=== PATIENT | male | born 1935 | race Caucasian/White ===

== ENCOUNTER 2021-10-02 20:39 | Emergency (ER) | payer MEDICARE, SELFPAY ==
--- NOTE | ~2021-10-02 | XR_ITS ---
EXAMINATION: XR HIP, RIGHT CLINICAL INFORMATION: Right hip pain status post fall. COMPARISON: None TECHNIQUE: Two views of the right hip. FINDINGS: The patient is status post right hip were with [address] showing good anatomic alignment with no evidence for hardware malfunction. There is no acute fracture. The right hip joint and right hemipelvis are intact. Moderate to severe degenerative changes are seen in the visualized inferior lumbar spine, greater on the right side with partial visualization of lumbar dextro scoliosis. The soft tissues are unremarkable. XR/XR hip RT w PEL1V IMPRESSION: No acute fracture or hardware abnormality.
--- NOTE | ~2021-10-02 | CT_ITS ---
EXAMINATION: CT HEAD WITHOUT CONTRAST CT CERVICAL SPINE WITHOUT CONTRAST CLINICAL INFORMATION: Fall. COMPARISON: None available. TECHNIQUE: Contiguous axial imaging was performed from the skull base to vertex without intravenous administration of contrast. Contiguous axial imaging was performed from the upper chest through the skull base without intravenous administration of contrast. Coronal and sagittal reformats were obtained at the acquisition workstation. This CT examination was performed using dose optimization techniques as appropriate, variously including the following: *Automated exposure control. *Adjustment of mA and/or kV according to patient size (this includes techniques or standardized protocols for targeted exams where dose is matched to indication/reason for exam; i.e. extremities or head). *Use of iterative reconstruction technique. DLP: 1101 mGy-cm FINDINGS: Head: There is no evidence of acute intracranial hemorrhage or edematous territorial infarction. Scattered hypoattenuation in the periventricular and deep white matter are consistent with moderate microangiopathy. Michelle-white matter differentiation is preserved. The ventricles are normal in size and configuration. No evidence for obstructive hydrocephalus. No abnormal mass effect or midline shift. No extra-axial fluid collections. No acute soft tissue or osseous abnormalities. Mild mucosal thickening of the paranasal sinuses. The mastoid air cells and middle ear cavities are clear. Periapical lucency surrounding the maxillary left 2nd molar. Complete opacification of the left external auditory canal without demonstrated osseous erosions. Left-sided lens extraction. Calcific atherosclerotic disease of the intracranial internal carotid and vertebral arteries without hyperdense vessel sign. Cervical Spine: Rotational subluxation of C1 on C2 appears positional in nature. Otherwise, the atlantooccipital and atlantoaxial articulations remain well aligned. Straightening of the normal cervical lordosis. Mild degenerative anterolisthesis of C3 on C4 and C4 on C5. Otherwise, there is anatomic alignment of the vertebral bodies and posterior elements. No evidence of acute fracture or subluxation. Degenerative loss of C3-T1 vertebral body heights. Advanced degenerative disc disease at C5-C6 and T1-T2. Mild to moderate degenerative disc disease at all additional cervical levels. Facet and uncovertebral joint arthropathy leads to osseous encroachment on the neural foramina from C3-C6 and at T1-T2. There is no prevertebral soft tissue swelling. The thyroid gland and remaining cervical soft tissues are normal in appearance. The lung apices demonstrate no abnormalities. CT/CT cervical spine wo con IMPRESSION: 1. No evidence of acute intracranial hemorrhage or edematous territorial infarction. Moderate underlying microangiopathy and generalized cerebral volume loss. 2. No evidence of acute fracture or traumatic subluxation of the cervical spine. Moderate to advanced multilevel degenerative spinal arthropathy of the cervical spine.
[2021-10-02 20:52] VITALS: BP 160/58; BP 178/81; PULSE 52; PULSE 56; RESP 18; TEMP 36.7; O2SAT 89; O2SAT 98; BMI 25.0
--- NOTE | 2021-10-02 21:26 | ED_ITS ---
HPI - Fall General Chief Complaint: Fall Stated Complaint: fall Time Seen by Provider: 10/02/21 21:03 Source: patient and family Mode of arrival: EMS Limitations: no limitations History of Present Illness HPI Narrative: Patient lives in independent living place very frail walks with walker was in his room left the walker aside and tied to turn lost balance fell down landed on his right hip tried to stand up and fell forward hitting his face to the ground came with multiple skin tears on the right and elbow and left elbow and superficial a laceration right eyebrow no loss of consciousness. Patient also complaining of pain in the right hip has a history of ORIF in the right hip Related Data Allergies Allergy/AdvReac Type Severity Reaction Status Date / Time No Known Allergies Allergy Verified 10/02/21 21:32 Review of Systems Review of Systems: Yes all other systems are reviewed and are negative ON LICENSE OF [facility] Past Medical History Medical History Fracture of right hip requiring operative repair Hypercholesterolemia Hypertension Neuropathy Surgical History History of heart artery stent Social History Social History Alcohol intake: never Patient Tobacco Use Status: Former Tobacco user Smoked in Last 30 Days: No Use of substances other than those prescribed or required for medical reasons: No Advance Directives: Yes Advance Directives Information Provided: No Advance Directives on File: No Physical Exam Vital Signs: Vital Signs: Last Vital Signs Temp 98.1 F 10/02/21 22:13 Pulse 46 L 10/02/21 22:13 Resp 17 10/02/21 22:13 BP 132/55 L 10/02/21 22:13 Pulse Ox 98 10/02/21 22:13 BMI result Body Mass Index 25.0 Appearance: Alert. Oriented X3. No acute distress. Eyes: PERRLA, superficial laceration right eyebrow ENT: Pharynx normal. Oral Mucosa moist hard of hearing Neck: Normal inspection. Neck supple. In cervical collar CVS: Normal heart rate and rhythm. Pulses normal. Respiratory: No respiratory distress. Equal air entry bilateral, no wheezing/rales/rhonchi Abdomen: Soft and nontender. Bowel sounds are present, no mass palpable, no CVA tenderness Skin: Skin warm and dry. Multiple skin tear bilateral upper extremities right hand right forearm left forearm superficial laceration right eyebrow and right index finger Extremities: No lower extremity edema. No calf tenderness tenderness at the right hip area no deformity noticed neurovascular intact Neuro: Oriented X 3. No motor deficit. No sensory deficit.No cerebellar signs , cranial nerves II-XII intact Procedures Laceration Laceration 1: Site: hand (Right index) Side (If applicable): right Size (cm): 3 Description: flap Skin layer closed with: other (Dermabond) Discharge Plan Discharge Clinical Impression: Fall, Avulsion of skin Patient Disposition: Home, Self-Care Instructions: Fall Prevention for Older Adults (ED), Skin Avulsion (ED) Additional Instructions: Local care as advised Care of skin avulsion call visiting nurse to help in dressing Cautions as advised to avoid fall
[2021-10-02 22:13] VITALS: BP 132/55; PULSE 46; RESP 17; TEMP 36.7; O2SAT 98
--- NOTE | 2021-10-02 22:40 | ECG_ITS ---
Test Reason : fall/andrea Blood Pressure : / mmHG Vent. Rate : 044 BPM Atrial Rate : 044 BPM P-R Int : 186 ms QRS Dur : 102 ms QT Int : 454 ms P-R-T Axes : 049 020 043 degrees QTc Int : 388 ms Marked sinus bradycardia Abnormal ECG No previous ECGs available Referred By: Kael Wing Electronically Signed By:HAN RICE
--- NOTE | 2021-10-02 22:48 | PC.NURSE ---
Patients HR goes into low 40s made aware, EKG ordered. Patient reports that he has been seen by Doctors in past.
--- NOTE | 2021-10-03 00:23 | PC.NURSE ---
skin care given r/t pt skin tear. skin tear to left forearm, elbow, rt forearm, elbow, and rt 2nd digit. rt 2nd digit glued by dr durant, other skin tear sites, cleansed with NS, bacitracin or xeroform bacitracin dressing applied, covered with nonadherant dressing, and wrapped with watson.
== END 2021-10-03 00:26 | disposition home or self-care (01) ==
PROVIDERS: Emergency Provider Internal Medicine
DX: S61.210A Laceration without foreign body of right index finger without damage to nail, initial encounter (principal); S01.111A Laceration without foreign body of right eyelid and periocular area, initial encounter; S51.812A Laceration without foreign body of left forearm, initial encounter; S51.811A Laceration without foreign body of right forearm, initial encounter; M25.551 Pain in right hip; R94.31 Abnormal electrocardiogram [ECG] [EKG]; I10 Essential (primary) hypertension; W18.30XA Fall on same level, unspecified, initial encounter; Y93.9 Activity, unspecified; Y92.099 Unspecified place in other non-institutional residence as the place of occurrence of the external cause; Y99.9 Unspecified external cause status
CPT/HCPCS: 12002; 70450; 72125; 73502; 93005; 99284

== ENCOUNTER 2021-12-12 17:55 | Emergency (ER) | payer MEDICARE, SELFPAY ==
--- NOTE | ~2021-12-12 | XR_ITS ---
EXAMINATION: CR RIGHT SHOULDER. CR PELVIS. CR LUMBAR SPINE. CLINICAL INFORMATION: Fall. Pain. COMPARISON: None TECHNIQUE: 3 views of the right shoulder. 3 views of the lumbar spine. Frontal view of the pelvis. FINDINGS: Right shoulder: Diffuse osteopenia. No acute fracture or dislocation. Glenohumeral joint and acromioclavicular joints are intact. There is prominent bursal surface spurring from the distal clavicle at the AC joint, predisposing the patient to impingement. Coracoclavicular distance is normal. Included right ribs appear intact. Pelvis: Diffuse osteopenia. No definite acute fracture or dislocation. 3 femoral screws is seen in the right femoral neck with no evidence of hardware failure or recurrent bone fracture. There is severe superior joint space narrowing, sclerosis, moderate femoral head spurring and mild cystic changes and spurring in the left acetabulum. Sacroiliac joints and pubic symphysis are intact. There is stool overlapping the sacrum, obscuring assessment. On the lateral view, the sacrum appears intact. Atherosclerotic calcification of the aorta iliac and femoral vessels seen. Lumbar spine: Prominent rotatory convex right thoracolumbar scoliosis is seen. This significantly limits the assessment on the lateral view and the sensitivity of the exam is limited. There is diffuse osteopenia and mild loss in height of the mid and lower lumbar vertebral bodies (L3-L5), likely long-standing given associated prominent vertebral endplate spurring and degenerative disc disease. Close clinical correlation is requested. There is diffuse disc space narrowing and vertebral endplate sclerosis and spurring throughout the thoracolumbar spine. There is severe facet arthropathy throughout the lumbar spine. There may be resultant spinal canal stenosis in the lower lumbar/lumbosacral spine region. Dense atherosclerotic calcification of the abdominal aorta and bifurcation noted. XR/XR shoulder RT min 2V IMPRESSION: 1. No evidence of acute right shoulder fracture. Prominent bursal surface spurring at the acromioclavicular joint is noted, predisposing the patient to impingement. 2. No evidence of acute pelvic fracture. Right femoral neck hardware is seen, appearing intact. 3. Limited assessment of the lumbar spine due to severe thoracolumbar dextroscoliosis and multilevel degenerative changes. Loss in height of the L3-L5 vertebral bodies is seen, likely long-standing. Close clinical correlation is requested.
--- NOTE | ~2021-12-12 | CT_ITS ---
EXAMINATION: CT HEAD WITHOUT CONTRAST CT CERVICAL SPINE WITHOUT CONTRAST CLINICAL INFORMATION: Fall. COMPARISON: CT head and cervical spine 10/02/2021 TECHNIQUE: Imaging was performed from the skull base to vertex without intravenous administration of contrast. In addition, helical noncontrast CT imaging was acquired through the cervical spine and source images were reviewed along with axial reconstructions and sagittal and coronal MPRs. [This CT examination was performed using dose optimization techniques as appropriate, variously including the following: *Automated exposure control *Adjustment of mA and/or kV according to patient size (this includes techniques or standardized protocols for targeted exams where dose is matched to indication/reason for exam; i.e. extremities or head) *Use of iterative reconstruction technique] DLP: 1183 mGy-cm FINDINGS: HEAD: No intracranial mass, hemorrhage, or midline shift is visualized. There is generalized global volume loss. There is moderate prominence of the ventricles and the sulci . There is mild hypodensity of the periventricular white matter due to chronic small vessel ischemic disease. There are vascular calcifications of the internal carotid arteries bilaterally. No extra-axial collections are identified. The paranasal sinuses and mastoid air cells are well aerated. CERVICAL SPINE: There is no evidence of acute cervical spine fracture. Vertebral bodies remain normal in height. Cervical vertebrae have normal alignment. There is multilevel degenerative spondylosis of the cervical spine with disc height narrowing and endplate spurs and facet joint arthrosis No pre- or paravertebral soft tissue abnormality is identified. Limited assessment of the lung apices is unremarkable. CT/CT cervical spine wo con IMPRESSION: 1. No acute intracranial pathology. 2. No CT evidence of acute cervical spine fracture or traumatic subluxation
[2021-12-12 18:09] VITALS: BP 148/74; PULSE 52; O2SAT 97
[2021-12-12 18:10] VITALS: BP 171/74; PULSE 51; RESP 16; TEMP 35.8; O2SAT 98; BMI 26.9
--- NOTE | 2021-12-12 18:23 | ED_ITS ---
HPI - Fall General Chief Complaint: Fall Stated Complaint: fall Time Seen by Provider: 12/12/21 18:23 Source: patient and family Mode of arrival: EMS Limitations: no limitations History of Present Illness HPI Narrative: Apparently patient was in assisted living room trying to put his shirt on lost balance stumbled fell backwards hitting his buttocks 1st then lower back and then the head to the ground complaining of pain in the lower back at this no loss of consciousness no other injury Related Data Allergies Allergy/AdvReac Type Severity Reaction Status Date / Time No Known Allergies Allergy Verified 10/02/21 21:32 Review of Systems Review of Systems: Yes all other systems are reviewed and are negative [facility] Past Medical History Medical History (Updated 12/13/21 @ 00:01 by Henri Mckenzie) Bradycardia Fracture of right hip requiring operative repair Hypercholesterolemia Hypertension Neuropathy Peripheral neuropathy Surgical History History of heart artery stent Social History Social History Alcohol intake: never Patient Tobacco Use Status: Former Tobacco user Use of substances other than those prescribed or required for medical reasons: No Advance Directives: Yes Advance Directives Information Provided: Yes Advance Directives on File: No Physical Exam Vital Signs: Vital Signs: Last Vital Signs Temp 98.2 F 12/12/21 22:20 Pulse 52 12/12/21 22:20 Resp 17 12/12/21 22:20 BP 176/83 H 12/12/21 22:20 Pulse Ox 97 12/12/21 22:20 O2 Del Method 12/12/21 22:20 BMI result Body Mass Index 26.9 Appearance: Alert. Oriented X3. No acute distress. Eyes: PERRLA, No Nystagmus ENT: Pharynx normal. Oral Mucosa moist Neck: Normal inspection. Neck supple. In cervical collar CVS: Normal heart rate and rhythm. Pulses normal. Respiratory: No respiratory distress. Equal air entry bilateral, no wheezing/rales/rhonchi Abdomen: Soft and nontender. Bowel sounds are present, no mass palpable, no CVA tenderness Back: Diffuse tenderness L2-L3 area no deformity no bruising Skin: Skin warm and dry. Normal skin color. Normal skin turgor. Extremities: No lower extremity edema. No calf tenderness Neuro: Oriented X 3. No motor deficit. No sensory deficit.No cerebellar signs , cranial nerves II-XII intact MDM - Fall MDM Narrative Medical decision making narrative: Patient is status post mechanical fall without loss of consciousness head CT C- spine CT negative lumbar spine x-ray showed age-indeterminate compression fracture perfamily likely old pelvis was negative patient ambulated in the ER discharge patient home Discharge Plan Discharge Clinical Impression: Fall, Compression fracture Patient Disposition: Home, Self-Care Instructions: Vertebral Compression Fracture (ED), Fall Prevention for Older Adults (ED) Additional Instructions: Care and cautions as advised Follow-up with your PCP about the back pain and? Old Compression fractures Tylenol for the pain Interventions: ED Discharge Assessment Last Done: 12/12/21 23:28 Discharge Date/Time: 12/12/21 23:28
--- NOTE | 2021-12-12 19:58 | PC.NURSE ---
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
[2021-12-12 19:59] VITALS: BP 168/71; PULSE 45; RESP 18; O2SAT 98
[2021-12-12 22:20] VITALS: BP 176/83; PULSE 52; RESP 17; TEMP 36.8; O2SAT 97
--- NOTE | 2021-12-12 22:53 | PC.NURSE ---
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
[2021-12-12] MEDS: Acetaminophen 325 MG TABLET 650 MG PO (23:12)
--- NOTE | 2021-12-12 23:28 | PC.NURSE ---
pt ambulated using walker slow yet steady gait. dc in w/c with son
== END 2021-12-12 23:28 | disposition home or self-care (01) ==
PROVIDERS: Emergency Provider Internal Medicine
DX: S32.009A Unspecified fracture of unspecified lumbar vertebra, initial encounter for closed fracture (principal); M54.2 Cervicalgia; M54.50 Low back pain, unspecified; R51.9 Headache, unspecified; R10.2 Pelvic and perineal pain; M25.511 Pain in right shoulder; W01.0XXA Fall on same level from slipping, tripping and stumbling without subsequent striking against object, initial encounter; Y93.9 Activity, unspecified; Y92.9 Unspecified place or not applicable; Y99.9 Unspecified external cause status; Z87.891 Personal history of nicotine dependence; Z79.899 Other long term (current) drug therapy
CPT/HCPCS: 70450; 72100; 72125; 72170; 73030; 99284

== ENCOUNTER 2022-12-25 09:47 | Emergency (ER) | payer MEDICARE, SELFPAY ==
[2022-12-25] VITALS (7 sets, daily range): BP systolic 111–155; BP diastolic 62–81; PULSE 44–66; RESP 13–19; TEMP 36.3–36.6; O2SAT 95–97; BMI 29.9
--- NOTE | 2022-12-25 09:53 | ECG_ITS ---
Test Reason : CP Blood Pressure : / mmHG Vent. Rate : 061 BPM Atrial Rate : 061 BPM P-R Int : 164 ms QRS Dur : 092 ms QT Int : 414 ms P-R-T Axes : 000 016 029 degrees QTc Int : 416 ms Ectopic atrial rhythm Otherwise Normal ECG When compared with ECG of 02-OCT-2021 22:37, No significant change was found Referred By: Generic ED Physician Electronically Signed By:Jose Lopez
--- NOTE | 2022-12-25 10:15 | PC.NURSE ---
pt alert and oriented, skin pwd, respirations even and unlabored ls clear, pt states that when he woke up to go use the bathroom he had some left sided chest pressure which is now resolved, denies dizziness, but also having some tingling in bilateral arms and hands, ns on the monitor and vs stable
[2022-12-25 10:17] LABS: MANUAL DIFF FLAG NO
[2022-12-25 10:24] LABS: Basophils Absolute Auto 0.1 X10*3/uL (0.0-0.2); Basophils Percent Auto 0.6 % (0-2); Eosinophils Absolute Auto 0.1 X10*3/uL (0.0-0.4); Eosinophils Percent Auto 1.4 % (0-4); Hematocrit 43.8 % (42.0-52.0); Hemoglobin 14.2 g/dl (14.0-18.0); Imm Gran Abs Auto 0.06 X10*3/uL (0.00-0.03); Imm Gran Pct Auto 0.7 % (0.0-0.4); Lymphocytes Absolute Auto 2.2 X10*3/uL (1.2-4.9); Lymphocytes Percent Auto 26.1 % (20-40); Mean Corpuscular HGB Conc 32.4 g/dl (31.0-36.0); Mean Corpuscular Hemoglobin 31.3 pg (27.0-33.0); Mean Corpuscular Volume 96.5 fL (80.0-98.0); Mean Platelet Volume 9.5 fL (9.4-12.4); Monocytes Absolute Auto 0.8 X10*3/uL (0.1-1.2); Neutrophils Absolute Auto 5.1 x10*3/uL (2.0-8.3); Neutrophils Percent Auto 61.2 % (45-73); Platelet Count 183 X10*3/uL (160-400); Red Blood Count 4.54 X10*6/uL (4.60-5.80); Red Cell Distribution Width 13.2 % (11.0-16.0); White Blood Count 8.3 X10*3/uL (4.8-10.8)
--- NOTE | 2022-12-25 10:25 | ED.CHESTPAIN ---
HPI - Chest Pain General Chief Complaint: Chest Pain Stated Complaint: Tingling in hands, chest pressure Time Seen by Provider: 12/25/22 10:03 Source: patient and EMS Mode of arrival: EMS Limitations: no limitations History of Present Illness HPI narrative: 87 yo from MD presented c/o chest pain X 3 h pain gone now.pain was radiated to the arms.no diaphoresis no SOB MD complaint: chest pain Onset (ago): hour(s) (3) Timing of current episode: episodic Onset: other (walking to the bathroom) Pain location: substernal Pain radiation: other (arms) Severity: mild Quality: dull Relieving factors: nothing Exacerbating factors: nothing Risk Factors Coronary artery disease risk factors: none Related Data Home Medications Medication Instructions Recorded Confirmed acetaminophen 650 mg 650 mg PO BID 12/25/22 12/25/22 tablet,extended release (Tylenol 8 Hour) aspirin 81 mg tablet,delayed 81 mg PO DAILY 12/25/22 12/25/22 release bumetanide 0.5 mg tablet 0.5 mg PO DAILY 12/25/22 12/25/22 cholecalciferol (vitamin D3) 25 50 mcg PO DAILY@1700 12/25/22 12/25/22 mcg (1,000 unit) tablet chromium picolinate 200 mcg tablet 200 mcg PO DAILY 12/25/22 12/25/22 docusate sodium 50 mg capsule 50 mg PO BEDTIME 12/25/22 12/25/22 flaxseed oil 1,000 mg capsule 1,400 mg PO DAILY 12/25/22 12/25/22 lisinopril 20 mg tablet 20 mg PO DAILY 12/25/22 12/25/22 magnesium oxide 400 mg (241.3 mg 400 mg PO DAILY 12/25/22 12/25/22 magnesium) tablet sertraline 50 mg tablet 50 mg PO BEDTIME 12/25/22 12/25/22 simvastatin 20 mg tablet 20 mg PO BEDTIME 12/25/22 12/25/22 Allergies Allergy/AdvReac Type Severity Reaction Status Date / Time No Known Allergies Allergy Verified 12/25/22 09:59 [facility] Past Medical History Medical History Bradycardia Fracture of right hip requiring operative repair Hypercholesterolemia Hypertension Neuropathy Peripheral neuropathy Surgical History History of heart artery stent Social History Social History Alcohol intake: never Patient Tobacco Use Status: Former Tobacco user Smoked in Last 30 Days: No Use of substances other than those prescribed or required for medical reasons: No Advance Directives: Yes Advance Directives Information Provided: No Advance Directives on File: No Physical Exam Vital Signs: Vital Signs: Last Vital Signs Temp 97.4 F 12/25/22 15:32 Pulse 48 L 12/25/22 15:32 Resp 15 12/25/22 15:32 BP 144/73 H 12/25/22 15:32 Pulse Ox 96 12/25/22 15:32 O2 Del Method Nasal Cannula 12/25/22 15:32 O2 Flow Rate 2 12/25/22 15:32 BMI result Body Mass Index 29.9 Const: General: cooperative Nutritional Appearance: average body habitus Orientation/consciousness: patient oriented x3 Limitations: no limitations HEENT: Head: Yes normal to inspection Ears: hearing grossly normal bilaterally General nose exam: Normal external nose present Face and sinus: Yes normal facial exam Mouth: Normal oral and palatal mucosa present Throat: Yes posterior oropharynx normal Neck: Neck: Yes normal visual inspection and Yes full ROM Chest: Chest palpation & inspection: normal inspection of the chest Resp: Effort & Inspection: normal respiratory effort Auscultation: clear to auscultation bilaterally Cardio: Jugular venous distension: no JVD Rate: regular rate Rhythm: regular rhythm GI: Inspection: Yes normal to inspection Palpation (GI): Soft to palpation, not firm and nontender Percussion: Yes normal to percussion Skin: General skin exam: no rashes or lesions noted and elasticity normal Lesions: no lesions Rashes: no rashes Neuro: General: patient oriented x3 Course Reevaluation(s) Reevaluation #1: Spoke with son actually pt has hx of cardiac stent in the past Time: 10:38 Reevaluation #2: pt will be transferred to [facility] requested by Dr Lopez Time: 13:50 Medications Administered Generic Name Dose Route Start Last Admin Trade Name Freq PRN Reason Stop Dose Admin Heparin Sodium/Sodium Chloride 25,000 unit in 250 mls @ 0 mls/hr 12/25/22 11:15 12/25/22 12:23 Heparin Sodium,Porcine/1/2ns IVCONT 12 units/kg/hr .Q0M MYKE 10.08 mls/hr Administration Protocol Per Protocol Discontinued Medications Generic Name Dose Route Start Last Admin Trade Name Augustine PRN Reason Stop Dose Admin Clopidogrel Bisulfate 300 mg 12/25/22 13:08 12/25/22 15:29 Clopidogrel Bisulfate 300 Mg Tablet PO 12/25/22 13:09 300 mg ONCE ONE Administration Heparin Sodium (Porcine) 4,000 unit 12/25/22 11:13 12/25/22 12:22 Heparin Sodium,Porcine 5,000 Unit/Ml Vial IVPUSH 12/25/22 11:14 4,000 unit ONCE ONE Administration Medical Decision Making Medical Decision Making [facility] Narrative: Patient presents with chest pain elevated high sensitive troponin cardiology consult was consulted the decision was made to transfer the patient a [facility] for a possible Cath Differential Diagnosis Differential Diagnoses: The differential diagnosis associated with the presentation includes NH/pericarditis/aortic dissection Admission/Observation Consideration of admission/observation: Escalation of care including admission/observation considered Consult Healthcare Provider Management of the patient was discussed with: [employer] Operator Telephone Appointment Clerk Dr Lopez Lab Data [facility] Lab Attestation statement: I reviewed the patient's lab results. 12/25/22 10:11 12/25/22 10:11 Labs: Lab Results 12/25/22 12/25/22 12/25/22 Range/Units 10:11 10:11 10:11 WBC (4.8-10.8) X10*3/uL RBC (4.60-5.80) X10*6/uL Hgb (14.0-18.0) g/dl Hct (42.0-52.0) % MCV (80.0-98.0) fL MCH (27.0-33.0) pg MCHC (31.0-36.0) g/dl RDW (11.0-16.0) % Plt Count (160-400) X10*3/uL MPV (9.4-12.4) fL Immature Gran % (Auto) (0.0-0.4) % Neut % (Auto) (45-73) % Lymph % (Auto) (20-40) % [place] % (Auto) (2-11) % Eos % (Auto) (0-4) % Baso % (Auto) (0-2) % Lymph # (Auto) (1.2-4.9) X10*3/uL [place] # (Auto) (0.1-1.2) X10*3/uL Eos # (Auto) (0.0-0.4) X10*3/uL Baso # (Auto) (0.0-0.2) X10*3/uL Abs Immat Gran (auto) (0.00-0.03) X10*3/uL Absolute Neuts (auto) (2.0-8.3) x10*3/uL Absolute Nucleated RBC (0.0-0.012) X10*3/uL Nucleated RBC % (auto) (0.0-0.2) /100WBC ESR 7 (0-15) MM/HR PT 10.0 (10.0-13.1) SEC INR 0.9 (0.9-1.1) APTT 28.6 (26.0-36.4) SEC Sodium 142 (135-145) mmol/L Potassium 4.8 (3.3-5.1) mmol/L Chloride 110 H (96-108) mmol/L Carbon Dioxide 24 (22-29) mmol/L Anion Gap 13 (12-20) BUN 23 H (9-16) mg/dL Creatinine 1.08 (0.5-1.4) mg/dL Estim Creat Clear Calc 49.9 Estimated GFR > 60 Random Glucose 92 (60-115) mg/dL Calcium 10.2 (8.4-10.2) mg/dL Magnesium 2.3 (1.6-2.6) mg/dL Total Bilirubin 0.4 (0.0-1.0) mg/dL AST 37 (5-37) U/L ALT 21 (0-40) U/L Alkaline Phosphatase 56 (39-117) U/L Troponin I High Sens (<3.5-35.0) ng/L C-Reactive Protein < 0.10 (< or = 0.50) mg/dL Total Protein 6.5 (6.5-8.0) g/dL Albumin 3.7 (3.5-5.0) g/dL COVID-19 (JOHNATHAN) (Negative) COVID-19 Clin Com 12/25/22 12/25/22 12/25/22 Range/Units 10:11 10:34 13:14 WBC 8.3 (4.8-10.8) X10*3/uL RBC 4.54 L (4.60-5.80) X10*6/uL Hgb 14.2 (14.0-18.0) g/dl Hct 43.8 (42.0-52.0) % MCV 96.5 (80.0-98.0) fL MCH 31.3 (27.0-33.0) pg MCHC 32.4 (31.0-36.0) g/dl RDW 13.2 (11.0-16.0) % Plt Count 183 (160-400) X10*3/uL MPV 9.5 (9.4-12.4) fL Immature Gran % (Auto) 0.7 H (0.0-0.4) % Neut % (Auto) 61.2 (45-73) % Lymph % (Auto) 26.1 (20-40) % Elliott % (Auto) 10.0 (2-11) % Eos % (Auto) 1.4 (0-4) % Baso % (Auto) 0.6 (0-2) % Lymph # (Auto) 2.2 (1.2-4.9) X10*3/uL Elliott # (Auto) 0.8 (0.1-1.2) X10*3/uL Eos # (Auto) 0.1 (0.0-0.4) X10*3/uL Baso # (Auto) 0.1 (0.0-0.2) X10*3/uL Abs Immat Gran (auto) 0.06 H (0.00-0.03) X10*3/uL Absolute Neuts (auto) 5.1 (2.0-8.3) x10*3/uL Absolute Nucleated RBC 0.000 (0.0-0.012) X10*3/uL Nucleated RBC % (auto) 0.0 (0.0-0.2) /100WBC ESR (0-15) MM/HR PT (10.0-13.1) SEC INR (0.9-1.1) APTT (26.0-36.4) SEC Sodium (135-145) mmol/L Potassium (3.3-5.1) mmol/L Chloride (96-108) mmol/L Carbon Dioxide (22-29) mmol/L Anion Gap (12-20) BUN (9-16) mg/dL Creatinine (0.5-1.4) mg/dL Estim Creat Clear Calc Estimated GFR Random Glucose (60-115) mg/dL Calcium (8.4-10.2) mg/dL Magnesium (1.6-2.6) mg/dL Total Bilirubin (0.0-1.0) mg/dL AST (5-37) U/L ALT (0-40) U/L Alkaline Phosphatase (39-117) U/L Troponin I High Sens 1125.8 H* (<3.5-35.0) ng/L C-Reactive Protein (< or = 0.50) mg/dL Total Protein (6.5-8.0) g/dL Albumin (3.5-5.0) g/dL COVID-19 (JOHNATHAN) Negative (Negative) COVID-19 Clin Com See Note Independent Interpretation I performed an independent interpretation of an: EKG Interpretation: EKG #! Normal sinus rhythm rate [address]-T changes Radiology Impression Discussion of test interpretation with radiology: I have reviewed the radiologist's reading. Independent Historian Clinical information obtained from an independent historian. History obtained from or confirmed by: Other (Son ) External Record Review External record reviewed: Office record Chronic Conditions Patient?s care impacted by: Other (CAD) Critical Care Time Critical Care Time Critical Care Time: Yes Total Critical Care Time: 60 Attestation: speaking with parking cashier arranging transfer Discharge Plan Discharge Clinical Impression: Acute coronary syndrome Patient Disposition: Xfer [facility] Transfer Details: cath Prescriptions: No Action lisinopril 20 mg tablet 20 mg PO DAILY docusate sodium 50 mg Capsule 50 mg PO BEDTIME aspirin 81 mg Tablet,Delayed Release (Dr/Ec) 81 mg PO DAILY acetaminophen [Tylenol 8 Hour] 650 mg Tablet Extended Release 650 mg PO BID flaxseed oil 1,000 mg Capsule 1,400 mg PO DAILY Rx Instructions: administer with a meal magnesium oxide 400 mg (241.3 mg magnesium) Tablet 400 mg PO DAILY simvastatin 20 mg tablet 20 mg PO BEDTIME bumetanide 0.5 mg tablet 0.5 mg PO DAILY chromium picolinate 200 mcg Tablet 200 mcg PO DAILY sertraline 50 mg tablet 50 mg PO BEDTIME cholecalciferol (vitamin D3) 25 mcg (1,000 unit) tablet 50 mcg PO DAILY@1700
[2022-12-25 10:30] LABS: INTERNATIONAL NORM RATIO 0.9 (0.9-1.1)
[2022-12-25 10:33] LABS: Partial Thromboplastin Time 28.6 SEC (26.0-36.4)
[2022-12-25 10:46] LABS: Alanine Aminotransferase 21 U/L (0-40); Albumin Level 3.7 g/dL (3.5-5.0); Alkaline Phosphatase 56 U/L (39-117); Anion Gap 13 (12-20); Aspartate Amino Transferase 37 U/L (5-37); Bilirubin Total 0.4 mg/dL (0.0-1.0); Blood Urea Nitrogen 23 mg/dL (9-16); C Reactive Protein < 0.10 mg/dL (< or = 0.50); Calcium 10.2 mg/dL (8.4-10.2); Carbon Dioxide 24 mmol/L (22-29); Chloride 110 mmol/L (96-108); Creatinine Clr Calc Pharmacy 49.9; Estimated Glomerular Filt Rate > 60; Glucose Random 92 mg/dL (60-115); Magnesium 2.3 mg/dL (1.6-2.6); Potassium 4.8 mmol/L (3.3-5.1); Sodium 142 mmol/L (135-145); Total Protein 6.5 g/dL (6.5-8.0)
[2022-12-25 11:02] LABS: Troponin-I High Sensitivity 1125.8 ng/L (<3.5-35.0)
[2022-12-25 11:12] LABS: Erythrocyte Sedimentation Rate 7 MM/HR (0-15)
--- NOTE | 2022-12-25 12:01 | PC.NURSE ---
aox4. no chest pain. tingling to hands continues- baseline hand numbness r/tneuropathy. no other sx. hr 40s. denies dizziness. bp stable. starting heparin gtt. pt to be transferred at some point to [facility]. gonzales equally. coherent speech. 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 no resp distress. skin normal color/+CSM. piv c/d/i.
[2022-12-25] MEDS: Heparin Sodium,Porcine 5,000 UNIT/ML VIAL 4000 UNIT IVPUSH (12:22)
[2022-12-25] MEDS: Heparin Sodium,Porcine/1/2NS 25,000 UNIT/250 ML IV.SOLN 10.08 UNIT IVCONT (12:23)
--- NOTE | 2022-12-25 12:38 | PC.NURSE ---
md smith notified hr 40s, denies dizziness/sob/cp. aox4. calm, coop. bp stable.
--- NOTE | 2022-12-25 13:01 | PM.CNCAR ---
History of Present Illness History of Present Illness Date of Service: 12/25/22 Requesting physician: Ayad Arce Chief complaint: NSTEMI Narrative: 87-year-old gentleman who is presenting with CP and NSTEMI. Has known coronary artery disease and previously had RCA PCI as per the son being 2010. He had PCI done in [place]. Is presenting because he had sudden-onset left-sided chest tightness at rest which lasted for 1-1/2 hour. He did not have any dynamic EKG changes. He ruled in for NSTEMI. He is currently pain-free and has no symptoms. No bleeding issues in the past. He is saying he has mild memory problems. He has a footdrop and his mobility is somewhat limited. He has been started on heparin drip. [facility] Past Medical History Medical History Bradycardia Fracture of right hip requiring operative repair Hypercholesterolemia Hypertension Neuropathy Peripheral neuropathy Surgical History Surgical History History of heart artery stent Social History Social History Alcohol intake: never Patient Tobacco Use Status: Former Tobacco user Smoked in Last 30 Days: No Use of substances other than those prescribed or required for medical reasons: No Advance Directives: Yes Advance Directives Information Provided: No Advance Directives on File: No Meds Allergies Allergy/AdvReac Type Severity Reaction Status Date / Time No Known Allergies Allergy Verified 12/25/22 09:59 Active Medications: Current Medications Heparin Sodium (Porcine) (Heparin Sodium,Porcine 5,000 Unit/Ml Vial) 3,400 unit 40 unit/kg (3400 unit) IVPUSH PROTOCOL BOLUS PRN; Protocol PRN Reason: 40 unit/kg - Heparin Protocol Heparin Sodium (Porcine) (Heparin Sodium,Porcine 5,000 Unit/Ml Vial) 6,700 unit 80 unit/kg (6700 unit) IVPUSH PROTOCOL BOLUS PRN; Protocol PRN Reason: 80 unit/kg - Heparin Protocol Heparin Sodium/Sodium Chloride (Heparin Sodium,Porcine/1/2ns) 25,000 unit in 250 mls @ 0 mls/hr IVCONT .Q0M MYKE; Protocol Last Admin: 12/25/22 12:23 Dose: 12 units/kg/hr, 10.08 mls/hr Physical Exam Vital Signs: Vital Signs: Last Vital Signs Temp 97.8 F 12/25/22 12:03 Pulse 45 L 12/25/22 12:03 Resp 18 12/25/22 12:03 BP 133/74 12/25/22 12:03 Pulse Ox 95 12/25/22 12:03 O2 Del Method Room Air 12/25/22 12:03 BMI result Body Mass Index 29.9 GENERAL APPEARANCE: in no acute distress, pleasant. NECK: no carotid bruit, no jugular venous distention. SKIN: no suspicious lesions, warm and dry. HEART: no murmurs, regular rate and rhythm. Bradycardic. LUNGS: clear to auscultation bilaterally. ABDOMEN: soft, nontender. EXTREMITIES: no edema. PERIPHERAL PULSES: equal. NEUROLOGIC: No gross deficits, AAO X 3 Objective Labs and Meds 12/25/22 10:11 12/25/22 10:11 Lab results: Laboratory Results - last 24 hr 12/25/22 12/25/22 12/25/22 10:11 10:11 10:11 WBC RBC Hgb Hct MCV MCH MCHC RDW Plt Count MPV Immature Gran % (Auto) Neut % (Auto) Lymph % (Auto) [place] % (Auto) Eos % (Auto) Baso % (Auto) Lymph # (Auto) [place] # (Auto) Eos # (Auto) Baso # (Auto) Abs Immat Gran (auto) Absolute Neuts (auto) Absolute Nucleated RBC Nucleated RBC % (auto) ESR 7 PT 10.0 INR 0.9 APTT 28.6 Sodium 142 Potassium 4.8 Chloride 110 H Carbon Dioxide 24 Anion Gap 13 BUN 23 H Creatinine 1.08 Estim Creat Clear Calc 49.9 Estimated GFR > 60 Random Glucose 92 Calcium 10.2 Magnesium 2.3 Total Bilirubin 0.4 AST 37 ALT 21 Alkaline Phosphatase 56 Troponin I High Sens C-Reactive Protein < 0.10 Total Protein 6.5 Albumin 3.7 12/25/22 12/25/22 10:11 10:34 WBC 8.3 RBC 4.54 L Hgb 14.2 Hct 43.8 MCV 96.5 MCH 31.3 MCHC 32.4 RDW 13.2 Plt Count 183 MPV 9.5 Immature Gran % (Auto) 0.7 H Neut % (Auto) 61.2 Lymph % (Auto) 26.1 [place] % (Auto) 10.0 Eos % (Auto) 1.4 Baso % (Auto) 0.6 Lymph # (Auto) 2.2 [place] # (Auto) 0.8 Eos # (Auto) 0.1 Baso # (Auto) 0.1 Abs Immat Gran (auto) 0.06 H Absolute Neuts (auto) 5.1 Absolute Nucleated RBC 0.000 Nucleated RBC % (auto) 0.0 ESR PT INR APTT Sodium Potassium Chloride Carbon Dioxide Anion Gap BUN Creatinine Estim Creat Clear Calc Estimated GFR Random Glucose Calcium Magnesium Total Bilirubin AST ALT Alkaline Phosphatase Troponin I High Sens 1125.8 H* C-Reactive Protein Total Protein Albumin Assessment and Plan (1) Acute coronary syndrome: Status: Acute Plan [age] year gentleman presenting with NSTEMI. He has known history of coronary disease reportedly and had RCA PCI in 2010. He has ruled in and clinical story is quite concerning for acute coronary syndrome. He is on aspirin which should be continued. Adding Plavix 300 mg load and he should stay on 75 mg once a day. Continue heparin drip. He will be transferred to [facility] with potential plan of doing cardiac catheterization tomorrow morning. Keep NPO after midnight. Obviously if he started having chest discomfort again then we will expedite the procedure today. Thank you for allowing me to participate in the care of your patient. Please feel free to contact me if you have any questions. Time Spent With Patient Time: Total time managing care of this patient today ____ minutes. Procedures Date of Service Date of Service: 12/25/22
--- NOTE | 2022-12-25 13:14 | ECG_ITS ---
Test Reason : CP - REPEAT Blood Pressure : / mmHG Vent. Rate : 046 BPM Atrial Rate : 046 BPM P-R Int : 162 ms QRS Dur : 092 ms QT Int : 476 ms P-R-T Axes : -72 005 035 degrees QTc Int : 416 ms Unusual P axis, possible ectopic atrial bradycardia Abnormal ECG When compared with ECG of 25-DEC-2022 09:52, Ectopic atrial rhythm has replaced Sinus rhythm Referred By: Ayad Arce Electronically Signed By:Jose Lopez
[2022-12-25 13:39] LABS: COVID-19 Test Negative (Negative); IDNOW Serial# 08D9AD1C
--- NOTE | 2022-12-25 14:00 | CA_ITS ---
Transthoracic Echocardiogram Patient (Last, First, Middle): Stewart Will, Gender: Male Date of : 1935 Age: 87 Procedure Date: 12/25/2022 Procedure Type: Transthoracic Echocardiogram Location: ER Height: 167.64 cm Weight: 83.92 kg BSA: 1.93 m2 Heart Rate: 45 bpm BP: 115 / 72 mmHg Lvn Home Health: [facility] Referring MD: Jose Lopez MD Symptoms: assess [facility] Study Quality: Fair ECG Rhythm: Bradycardia Conclusions: - Normal left ventricular size and systolic function. There is mildly increased left ventricular wall thickness. The visually estimated ejection fraction is between 55-60%. - There is moderate aortic valve stenosis. Findings Left Ventricle Normal left ventricular size and systolic function. There is mildly increased left ventricular wall thickness. The visually estimated ejection fraction is between 55-60%. There is no evidence of regional wall motion abnormalities. Abnormal diastolic function is noted. Spectral Doppler is indicative of a pseudonormal filling pattern. E/E prime ratio is >15, consistent with elevated filling pressures. Right Ventricle Normal right ventricular cavity size and systolic function. Atria The left atrium is mildly dilated. The right atrium is normal in size. Aortic Valve There is severe calcification of the aortic valve. There is moderate aortic valve stenosis. The peak aortic velocity is 2.80 m/s. The mean gradient is 18 mmHg. The aortic valve area is 1.10 cm2. There is trace (trivial) aortic valve regurgitation. Mitral Valve The mitral valve appears normal. There is trace mitral valve regurgitation. There is no mitral valve stenosis. Pulmonic Valve Normal pulmonic valve structure and function. There is trace pulmonic valve regurgitation. Tricuspid Valve Normal tricuspid valve structure. There is no tricuspid valve regurgitation. Normal right atrial pressure. There is no evidence of pulmonary hypertension. Great Vessels The pulmonary artery was not well visualized. There is mild dilatation of the ascending aorta measuring 4.10 cm. Venous The inferior vena cava is normal in size and collapses greater than 50% with inspiration. Pericardium/Pleural There is no evidence of pericardial effusion. Prior Study Comparison No prior study available for comparison. Measurements 2D Linear Measurements IVSd: 1.16 0.6-0.9/0.6-1.0 cm LVIDd: 3.50 3.9-5.3/4.2-5.9 cm LVIDd Index: 1.81 2.4-3.2/2.2-3.1 cm/m2 LVIDs: 1.86 2.0-3.6 cm LVPWd: 1.21 0.7-1.1 cm LV Mass: 165.76 67-162/88-224 g LV Mass Index: 85.89 43-95/49-115 g/m2 LVOT Diam: 2.10 3.0+(-)1.3 cm 2D Systolic Function EF 4C: 54.30 >55% EF 2C: 53.90 >55% EF BiP: 55.60 >55% Mitral Valve MV Pk E: 0.98 MV PK A: 0.81 MV Decel Time: 208.00 E/A: 1.20 E'Lateral: 7.83 E'Medial: 5.33 E/E' Med: 18.40 E/E' Lat: 12.50 PHT: 61.00 MVA PHT: 3.61 Decel [place]: 4.73 Aortic Valve AoV Pk Chente: 2.80 AoV Mn Chente: 2.00 AoV VTI: 0.77 AoV Pk Grad: 31.00 Aov Mn Grad: 18.00 AILYN Cont.VTI: 1.10 LVOT LVOT Pk Chente: 0.95 LVOT Mn Chente: 0.60 LVOT VTI: 0.22 LVOT Pk Grad: 4.00 LVOT Mn Grad: 2.00 LVOT Diam: 2.10 LVOT Area: 3.46 Diastolic Function MV Pk E: 0.98 MV Pk A: 0.81 E/A: 1.20 E'Medial: 5.33 E/E' Med: 18.40 E' Laterial: 7.83 E/E' Lat: 12.50 Right Ventricle TAPSE (mm): 21.40 TVS' Chente: 12.10 Tricuspid Valve TR Pk Chente: 2.00 TR Pk Grad: 16.00 RA Press: 3.00 RVSP: 19.00 Great Vessels Aorta Sinus of Valsalva: 3.59 2.0-3.[address] [place]: 2.39 1.7-3.4 cm Ao Asc: 4.10 2.1-3.4 cm Updated in Other Vendor System with Status of Final Jose Lopez MD electronically signed on 12/25/2022 10:15:33 PM with status of Final
--- NOTE | 2022-12-25 14:05 | PHA.MEDREC ---
Pharmacy Consult ? Medication Reconciliation Pharmacy has completed the medication reconciliation. Spoke to patient's family at bedside to confirm meds.
[2022-12-25] MEDS: Clopidogrel Bisulfate 300 MG TABLET PO (15:29)
--- NOTE | 2022-12-25 15:34 | PC.NURSE ---
continues to deny chest pain. no sob. bp stable. +o2 sat on 2L SANGEETA- md smith aware hr 40s w/no dizziness, cp, sob. heparin continues. resting calmly w/o distress.
--- NOTE | 2022-12-25 16:42 | MHC.EDTECH ---
[facility] called back with room assignment and accepting MD at [phone]. Going to [place] [id number]. Accepting MD - .
--- NOTE | 2022-12-25 16:55 | PC.NURSE ---
transport here. report to [facility] room 9 mm7
== END 2022-12-25 16:55 | disposition short-term general hospital (02) ==
PROVIDERS: Physician Assistant Medical; Emergency Provider Emergency Medicine
DX: I24.9 Acute ischemic heart disease, unspecified (principal); Z20.822 Contact with and (suspected) exposure to COVID-19; R07.9 Chest pain, unspecified; I10 Essential (primary) hypertension; E78.00 Pure hypercholesterolemia, unspecified; Z87.891 Personal history of nicotine dependence
CPT/HCPCS: 36415; 80053; 83735; 84484; 85025; 85610; 85652; 85730; 86140; 87635; 93005; 93306; 93308; 96365; 96375; 99285; J1643; Q9957

== ENCOUNTER → 2022-12-25 10:45 | Outpatient (BNV) | payer MEDICARE, SELFPAY | PROVIDERS: Emergency Provider Emergency Medicine; Visit Provider Internal Medicine Cardiovascular Disease | DX: I49.8 Other specified cardiac arrhythmias (principal) | CPT/HCPCS: 93010; 93306; 99223 ==

== ENCOUNTER → 2022-12-26 23:59 | Outpatient (BNV) | payer MEDICARE, SELFPAY | PROVIDERS: Visit Provider Internal Medicine Cardiovascular Disease | DX: I35.0 Nonrheumatic aortic (valve) stenosis (principal); I25.10 Atherosclerotic heart disease of native coronary artery without angina pectoris | CPT/HCPCS: 93458; 99152 ==